=== PATIENT | female | born 1955 | race Caucasian/White ===

== ENCOUNTER → 2023-07-24 16:41 | Outpatient (CLI) | payer MEDICARE, MEDICAID, SELFPAY ==
--- NOTE | 2023-07-24 16:44 | DI.US.S_ITS ---
PROCEDURE: US CAROTID DOPPLER BI INDICATIONS: CAROTID ARTERY DISEASE/STENOSIS TECHNIQUE: Color and pulse Doppler interrogation was performed of both carotid systems, with image documentation and velocity measurements. COMPARISON: [facility], , CAROTID ARTERY DOPPLER BILAT, 12/01/2015, 13:55. FINDINGS: Stenosis calculations are based on SRU (S[employer] in Ultras[employer]) criteria. Right side: Brachial blood pressure: 156/54 mm Hg. Common carotid artery peak systolic velocity: 160 cm/sec. Internal carotid artery peak systolic velocity: 293 cm/sec. Previously 128 centimeter/second. Internal carotid artery end diastolic velocity: 35 cm/sec. External carotid artery peak systolic velocity: 717 cm/sec. ICA/CCA peak systolic ratio: 1.7 . Duff scale imaging description: Diffuse atherosclerotic disease Percent internal carotid artery stenosis: Greater than 70 percent . Vertebral artery: Flow direction is antegrade. Left side: Brachial blood pressure: 135/54 mm Hg. Common carotid artery peak systolic velocity: 294 cm/sec. Previously 177 centimeters/second. Internal carotid artery peak systolic velocity: 131 cm/sec. Internal carotid artery end diastolic velocity: 19 cm/sec. External carotid artery peak systolic velocity: 111 cm/sec. ICA/CCA peak systolic ratio: 0.4 . Duff scale imaging description: Diffuse atherosclerotic disease. Percent internal carotid artery stenosis: 50-69 percent stenosis . Vertebral artery: Flow direction is antegrade. IMPRESSION: Greater than 70 percent stenosis of the right internal carotid artery, previously less than 50 percent. 50-69 percent stenosis of the left internal carotid artery, previously less than 50 percent. Dictated by: Mamadou Love M.D. on 07/25/2023 at 11:05 Approved by: Mamadou Love M.D. on 07/25/2023 at 11:08
== END ==
LOC: US 16:43
PROVIDERS: PCP Family Medicine; Referring Provider Internal Medicine Cardiovascular Disease; Visit Provider Internal Medicine Cardiovascular Disease
DX: I65.23 Occlusion and stenosis of bilateral carotid arteries; I25.118 Atherosclerotic heart disease of native coronary artery with other forms of angina pectoris
CPT/HCPCS: 93880